=== PATIENT | female | born 2000 | race Caucasian/White ===

== ENCOUNTER 2021-09-14 13:55 | Emergency (ER) | payer OTHER ==
[~2021-09-14] VITALS: Ht 162.6 cm; Wt 62.3 kg
[2021-09-14 14:00] VITALS: BP 126/85; TEMP 98
[2021-09-14 14:23] VITALS: PULSE 69
== END 2021-09-14 14:20 | disposition home or self-care (01) ==
LOC: COL.ER 13:55
DX: T24.202A Burn of second degree of unspecified site of left lower limb, except ankle and foot, initial encounter (principal); T31.0 Burns involving less than 10% of body surface; X16.XXXA Contact with hot heating appliances, radiators and pipes, initial encounter